=== PATIENT | female | born 2000 | race Caucasian/White ===

== ENCOUNTER 2018-10-22 05:32 | Outpatient (CLI) | payer BC ==
[~2018-10-22] VITALS: Ht 160 cm; Wt 55.3 kg
== END 2018-10-22 10:59 | disposition home or self-care (01) ==
LOC: PREOP 05:32
PROVIDERS: ATTEND Podiatrist
DX: Z01.818 Encounter for other preprocedural examination (principal)

== ENCOUNTER 2018-10-25 07:49 | Day surgery (SDC) | payer BC ==
[~2018-10-25] VITALS: Ht 160 cm; Wt 55.3 kg
--- OUTSIDE RECORDS SUMMARY | 2018-10-25 07:56 | XMS REPORT ---
Author Author JE HERRON Organization [facility] [address] Address [address] [place] [address] Care Team Providers Care Director Of Rotc Name Role Phone JE HERRON Unavailable PROBLEMS Type Condition ICD9-CM Code LFP58-ER Code Onset Dates Condition Status SNOMED Code Problem Anxiety F41.9 Active 55423099 Problem Post traumatic stress disorder F43.10 Active [id number] ALLERGIES No Known Allergies ENCOUNTERS Encounter Location Date Diagnosis [facility] [address] [place] [address] Dec, Anxiety F41.9 and Post traumatic stress disorder F43.10 IMMUNIZATIONS No Known Immunizations SOCIAL HISTORY Never Assessed REASON FOR VISIT herminia Ceron RN PLAN OF CARE VITAL SIGNS Height 63 in 2018-01-03 Weight 113 lbs 2018-01-03 Temperature 98.1 degrees Fahrenheit 2018-01-03 Heart Rate 78 bpm 2018-01-03 Respiratory Rate 18 2018-01-03 BMI 20.01 kg/m2 2018-01-03 Blood pressure systolic 98 mmHg 2018-01-03 Blood pressure diastolic 62 mmHg 2018-01-03 MEDICATIONS Unknown Medications RESULTS No Results PROCEDURES No Known procedures INSTRUCTIONS MEDICATIONS ADMINISTERED No Known Medications MEDICAL (GENERAL) HISTORY Type Description Date Surgical History gall stones removed Surgical History gallbladder removed Hospitalization History Gall bladder issues
--- OUTSIDE RECORDS SUMMARY | 2018-10-25 07:56 | XMS REPORT | Continuity of Care Document ---
Demographics x Preferred Language Unknown Marital Status Unknown Catholic Affiliation Unknown Race Unknown Ethnic Group Unknown Author Author [facility] Organization [facility] Address Unknown Phone Unavailable Allergies Active Description Code Type Severity Reaction Onset Reported/Identified Relationship to Patient Clinical Status Yes No Known Drug Allergies [id number] Drug Allergy Unknown N/A 10/22/2018 Medications There is no data. Problems Date Dx Coded Attending Type Code Diagnosis Diagnosed By 01/21/2015 TESSY DESIR 462 Pharyngitis, acute 04/01/2015 RAINA SEGURA 610.1 DIFFUSE CYSTIC MASTOPATHY 04/29/2015 BREA BULLARD V20.2 ROUTINE OR CHILD HEALTH CHECK 12/20/2015 TESSY DESIR B96.89 Other specified bacterial agents as the cause of diseases classified elsewhere 12/20/2015 TESSY DESIR J20.8 Acute bronchitis due to other specified organisms 12/20/2015 TESSY DESIR J32.9 Chronic sinusitis, unspecified 05/25/2016 JORGE THOMPSON J02.8 Acute pharyngitis due to other specified organisms 10/22/2018 JOSE ISAAC DPM Ot Z01.818 ENCOUNTER FOR OTHER PREPROCEDURAL EXAMIN 10/23/2018 JOSE ISAAC DPM Ot Z01.818 ENCOUNTER FOR OTHER PREPROCEDURAL EXAMIN Procedures There is no data. Results Test Result Range HCG QUAL - 01/19/14 00:00 HCG N Encounters ACCT No. Visit Date/Time Discharge Status Pt. Type Provider Facility Loc./Unit Complaint [id number] 01/19/2014 16:18:00 01/19/2014 19:30:00 DIS Emergency KARLY PADILLA [facility] EMR [id number] 01/19/2014 16:18:00 01/19/2014 19:30:00 DIS Emergency JOSE SOTO [facility] EMR [id number] 08/30/2013 00:00:00 Document Registration [id number] 01/22/2014 11:37:15 ACT Document Registration [id number] 05/25/2016 13:30:00 05/25/2016 17:30:00 DIS CB JAYJORGE [facility] [id number] 12/20/2015 10:45:00 12/20/2015 14:45:[id number] 04/29/2015 16:00:00 04/29/2015 20:00:00 DIS RB BRAE BULLARD [facility] [id number] 04/01/2015 14:30:00 04/01/2015 18:30:00 DIS RB RAINA SEGURA [facility] [id number] 01/21/2015 10:30:00 01/21/2015 20:30:00 [facility] [id number] 10/22/2018 05:32:00 10/22/2018 10:59:00 DIS Outpatient JOSE ISAAC DPM [facility] PREOP STJ AND CCJ FUSION RIGHT ANKLE [id number] 10/25/2018 07:49:00 ACT Outpatient JOSE ISAAC DPM [facility] SDC POST TRAUMATIC OSTEOARTHRITIS RT ANKLE
[2018-10-25] MEDS ORDERED: LACTATED RINGERS 1,000 ML IV PRN (08:23)
[2018-10-25 08:30] VITALS: BP 99/66
[2018-10-25] MEDS ORDERED: ceFAZolin 2 GM IV Premixed 50 ML IV ONE (08:30)
[2018-10-25] MEDS ORDERED: proPOfol 200 MG/20 ML (DIPRIVAN) VIAL IV ONE (09:15)
[2018-10-25] MEDS ORDERED: LIDOCAINE PF 2% 5 ML (XYLOCAINE) VIAL ONE (09:16)
[2018-10-25] MEDS ORDERED: SEVOFLURANE (ULTANE) 15 ML INHAL SOLN ONE ×4 (09:16→13:52)
[2018-10-25] MEDS ORDERED: MIDAZOLAM 2 MG/2 ML (VERSED) VIAL ONE (09:16)
[2018-10-25] MEDS ORDERED: ONDANSETRON 4 MG/2 ML (SDV) Z0FRAN ONE (09:16)
[2018-10-25] MEDS ORDERED: DEXAMETHASONE 10 MG/ML (DECADRON) 1 ML VIAL ONE (09:16)
[2018-10-25] MEDS ORDERED: fentaNYL INJECTION 250 MCG/5 ML AMP ONE (09:16)
[2018-10-25] MEDS ORDERED: BUPIVACAINE 0.5% 30 ML (SENSORCAINE) VIAL ONE ×2 (10:11→10:45)
[2018-10-25] MEDS ORDERED: HEParin (CENTRAL IV FLUSH) 500 UNIT/5 ML SYR ONE (11:04)
--- NOTE | 2018-10-25 11:57 | NUR ---
Initial visit: pt and her boyfriend, Hugo, of 10 years demonstrate positive and mutually supportive relationship. Pt said they have been "on and off" until the past 4 years when things have stayed steady. Both engaged openly, and demonstrated comfort and trust throughout our interaction. Pt and Piotr. work at [employer] in [place]. Pt said her foot has been broken for a year and this was confirmed after she requested an MRI. She worked through yesterday in anticipation of taking time off to recover from surgery.
[2018-10-25] MEDS ORDERED: GLYCOPYRROLATE 0.2 MG/ML (ROBINUL) 2 ML VIAL ONE (13:40)
[2018-10-25] MEDS ORDERED: BACLOFEN 10 MG (LIORESAL) TAB PO PRN (14:15)
[2018-10-25] MEDS ORDERED: morphine INJ 10 MG/ML 1ML (SYR OR VIAL) IVP PRN (14:15)
[2018-10-25] MEDS ORDERED: morphine INJ 10 MG/ML 1ML (SYR OR VIAL) IVP ONE (14:15)
[2018-10-25] MEDS ORDERED: D5 1/2 NS 1000 ML IV SOLUTION 1,000 ML IV SCH (14:15)
[2018-10-25] MEDS ORDERED: BISACODYL 10 MG SUPP (DULCOLAX) PR PRN (14:15)
[2018-10-25] MEDS ORDERED: HYDROcodone/APAP 10 MG/325 MG (LORTAB) TAB PO PRN (14:15)
[2018-10-25] MEDS ORDERED: ONDANSETRON 4 MG/2 ML (SDV) Z0FRAN IVP PRN ×2 (14:15)
--- NOTE | 2018-10-25 14:32 | NUR ---
Received Social Service consult on this patient who post surgery for discharge planning. Called surgery for clarification from Dr. Galeas. He reports that this is an automatic order and that there are no current SS needs.
[2018-10-25] MEDS ORDERED: KETOROLAC 30 MG/ML VIAL ONE (14:35)
[2018-10-25] MEDS: KETOROLAC 15 MG/ML VIAL IVP PRN (14:42)
[2018-10-25] MEDS ORDERED: HYDROmorphone 2 MG/ML VIAL (DILAUDID) IV ONE (14:45)
[2018-10-25 15:10] VITALS: BP 91/54
[2018-10-25] MEDS: D5 1/2 NS 1000 ML IV SOLUTION 1,000 ML IV SCH (15:56)
[2018-10-25] MEDS ORDERED: FLU QUADRIvalent (5+ YOA) 2018-2019 (AFLURIA) 0.5 ML IM ONE (16:15)
--- NOTE | 2018-10-25 16:58 | Diagnostic Imaging Report ---
INDICATION: Fluoroscopy for right ankle surgery. EXAMINATION: Fluoroscopy was provided in the OR during right foot and ankle surgery. FINDINGS: 68 seconds of fluoroscopy was utilized. Images demonstrate two fully threaded screws transfixing the subtalar joint. There is also a lateral plate which appears to transfix the calcaneocuboid joint. IMPRESSION: Fluoroscopy during foot surgery. Dictated by: Dictated on workstation # [id number]
[2018-10-25] MEDS: ceFAZolin 2 GM IV Premixed 50 ML IV SCH (17:44)
--- NOTE | 2018-10-25 18:27 | NUR ---
PT HAS HAD EMESIS X 3, ZOFRAN GIVEN EARLIER WITH SOME RELIEF. DR ISAAC NOTIFIED AND NEW ORDERS RECEIVED. SEE ORDER HX.
[2018-10-25] MEDS ORDERED: PROMETHAZINE INJ 25 MG/ML (PHENERGAN) AMP IVP PRN (18:30)
[2018-10-25 20:36] VITALS: BP 107/71
[2018-10-26] VITALS: BP 93/60
[2018-10-26] MEDS: ceFAZolin 2 GM IV Premixed 50 ML IV SCH (02:32)
[2018-10-26 04:00] VITALS: BP 87/50
[2018-10-26] MEDS: D5 1/2 NS 1000 ML IV SOLUTION 1,000 ML IV SCH (05:53)
[2018-10-26 08:00] VITALS: BP 82/43
[2018-10-26] MEDS ORDERED: ENOXAPARIN 40 MG/0.4 ML (LOVENOX) SYR SC SCH (09:00)
[2018-10-26] MEDS: KETOROLAC 15 MG/ML VIAL IVP PRN (09:26)
--- NOTE | 2018-10-26 09:27 | Physical Therapy Ortho Eval ---
PT Orthopedic Evaluation Type of Surgery Prior Level of Function Current Living Status: Spouse Locomotion (Upon Admit): Independent knee scooter Subjective Subjective Agrees to PT Entry Into Home: Stairs With Railing Steps Into Home: 4 Steps Accessories: Railing Present Motor Control Motor Control: Motor Control WNL ROM ROM: WFL, except focal deficit Strength Strength: WFL Transfer Transfers (B, C, W/C) (FIM): 7 Gait knee scooter Right Lower Extremity: Right Weight Bearing Status RLE: Non Weight Bearing Left Lower Extremity: Left Weight Bearing Status LLE: Full Weight Bearing Gait (FIM): 6 Distance (FIM): 3=150 ft Distance: 250' Gait Level of Assist: 6 Summary/Comments NWB right LE with knee scooter Treatment Rendered Treatment: Gait Train, Step Train (spouse reports he will carry her inside) Assessment/Goals Goal Time Frame: 1 Visit Safe Ambulation: Yes Plan Treatment Plan: Discharge PT/Family Agrees to Plan: Yes Time Time In: 832 Time Out: 840 Total Billed Treatment Time: 8 Billed Treatment Time 1 visit [facility] 8 min JOSE C LANG PT Oct 26, 2018 09:27
--- NOTE | 2018-10-26 09:32 | Podiatry Progress Note ---
Standard Progress Note Progress Notes/Assess & Plan Date Seen by a Provider: Oct 26, 2018 Time Seen by a Provider: 09:29 Progress/Assessment & Plan Pt seen at bedside, pain controlled by block, no complaints. Had post op nausea , resolved at this time. RLE- Dressing changed at bedside, mild sanguinous drainage, active ROM intact to the digits, calves supple nontender. Final Diagnosis POD #1 Right STJ Fusion and Distraction Arthrodesis of the CC joint with proximal tibial bone graft harvest. -Cont NWB RLE -Pain meds PRN -PT/OT -Lovenox for DVT Proph -Plan for D/C Home Today. JOSE ISAAC DPM Oct 26, 2018 09:32
--- NOTE | 2018-10-26 09:36 | Discharge Summary ---
Diagnosis/Chief Complaint Date of Admission 10/25/2018 Date of Discharge 10/26/2018 Discharge Date: Oct 26, 2018 Discharge Time: 09:33 Admission Diagnosis Admission Diagnosis Post Traumatic OA Right STJ and CCJ Discharge Diagnosis same Reason Hospital Visit Surgery to RLE with pain and ambulatory dysfunction. Discharge Summary Procedures: STJ Fusion and Distraction Arthrodesis of the CCJ RLE, Proximal Tibial Bone Graft [place] RLE Consultations none Discharge Physical Examination Allergies: Coded Allergies: No Known Drug Allergies (Unverified , 10/22/18) Vitals & I&Os Vital Signs Date Time Temp Pulse Resp B/P (MAP) Pulse Ox O2 Delivery O2 Flow Rate FiO2 10/26/18 08:00 96.3 72 15 82/43 (56) 98 Room Air Hospital Course uneventful Discharge Condition at discharge stable Instructions to patient/family Please see electronic discharge instructions given to patient. Discharge Medications Reviewed and agree with Discharge Medication list on patient's Discharge Instruction sheet Clinical Quality Measures Admission Status Admission Status: Observation Reason for Inpatient Admission: pain, ambulatory dysfunction DVT/VTE Risk/Contraindication: Risk Factor Score Per Nursin RFS Level Per Nursing on Admit: 4+=Very High JOSE ISAAC DPM Oct 26, 2018 09:36
--- NOTE | 2018-10-26 09:38 | Discharge Inst-Surgical ---
Discharge Inst-Surgical Consults/Follow Up Patient Instructions: Keep Dressing Clean, Dry and Intact to the RLE. Remain Nonweight bearing to the RLE. follow up with Dr Isaac in 2 weeks. Call for appointment. [phone] JOSE ISAAC DPM Oct 26, 2018 09:38
[2018-10-26] MEDS ORDERED: HYDR-3820 PO (09:39)
--- NOTE | 2018-10-26 09:57 | Occupational Therapy Eval ---
OT Evaluation-General/PLF Medical Diagnosis Admission Date October 25, 2018 Medical Diagnosis: post traumatic OA, STJ fusion Onset Date: Oct 25, 2018 Therapy Diagnosis Therapy Diagnosis: decr self care, decr funct mob Height/Weight Height (Feet): 5 Height (Inches): 3.00 Weight (Pounds): 122 Weight (Ounces): 0.0 Precautions Precautions/Isolations: Standard Precautions Safety Interventions: None Weight Bear Status Weight Bearing Restriction: Non Weight Bearing Location Restriction: R LE knee scooter Medical History Additional Medical History Anxiety, depression. Reported foot has been broken for about a year Current History R STJ fusion at ankle. NWB for 3 months Reviewed History: Yes Social History Home: Multilevel Current Living Status: Other Family Entry Into Home: Elevator, Stairs With Railing Steps Into Home: 4 Pt reported that she will be staying at boyfriend's father's house which has an elevator ADL-Prior Level of Function Therapy Code Descriptions/Definitions Functional [place] Measure: 0=Not Assessed/NA 4=Minimal Assistance 1=Total Assistance 5=Supervision or Setup 2=Maximal Assistance 6=Modified [place] 3=Moderate Assistance 7=Complete [place] Therapy Quality Codes: 6 Independent with activity with or without an assistive device 5 Patient requires set up or clean up by helper. Patient completes activity by themselves 4 Supervision or touching assist (CGA). [place] provide cues , steadying assist 3 The helper provides less than half the effort to complete the activity 2 The helper provides more than half the effort to complete the activity 1 Dependent. The helper does all the effort to complete an activity 7 Patient refused to complete or attempt activity 9 The patient did not perform the activity before the current illness or injury 88 Not attempted due to Medical conditions or safety concerns Functional Abilities and Goals: Independent: Patient completed the activities by him/herself, with or without an assistive device, with no assistance from a helper. Needed Some Help: Patient needed partial assistance from another person to complete activities. Dependent: A helper completed the activities for the patient. Unknown: Not Applicable: ADL PLOF Comments Pt reported that she was previously able to manage her basic self care needs, works at [employer]. Self Care: Independent Functional Cognition: Independent DME/Equipment: Bath Bench (available), Shower, Shower Hose Learning Center Coordinator, Tub OT Current Status Subjective Pt seen in room, up in bed, agreeable to OT. Pain rated 3/10 in R ankle, not described. Pt reported that she just had pain meds Appearance Alert, cooperative Mental Status/Objective Patient Orientation: Person, Place, Time, Situation Attachments: IV Current Upper Extremity ROM Grossly WFL per pt report Upper Extremity Sensation No problems per pt report Upper Extremity Strength Grossly WFL per pt report ADL-Treatment ADL-Current Pt got out of bed independently with PT and walked indep with knee scooter. Reviewed modified ADLs, including transfer tub bench, shower bench, BSC over toilet, modified dressing techniques, with pt and boyfriend verbal understanding. She anticipates no difficulty with basic ADLs. Plans to DC today Therapy Code Descriptions/Definitions Functional [place] Measure: 0=Not Assessed/NA 4=Minimal Assistance 1=Total Assistance 5=Supervision or Setup 2=Maximal Assistance 6=Modified [place] 3=Moderate Assistance 7=Complete [place] Therapy Quality Codes: 6 Independent with activity with or without an assistive device 5 Patient requires set up or clean up by helper. Patient completes activity by themselves 4 Supervision or touching assist (CGA). [place] provide cues , steadying assist 3 The helper provides less than half the effort to complete the activity 2 The helper provides more than half the effort to complete the activity 1 Dependent. The helper does all the effort to complete an activity 7 Patient refused to complete or attempt activity 9 The patient did not perform the activity before the current illness or injury 88 Not attempted due to Medical conditions or safety concerns Education OT Patient Education: Modified ADL techniques, Purpose of tx/functional activities, Reviewed precautions, Rehab process Teaching Recipient: Patient, Significant Other Teaching Methods: Discussion Response to Teaching: Verbalize Understanding OT Senior Living Goals Manager Of Customer Billing Goals Time Frame: Oct 26, 2018 Additional Goals: 2-Verbalize Understanding (goal met) 2=Patient will verbalize/demonstrate understanding of assistive devices/ modifications for ADL. OT Education/Plan Problem List/Assessment Assessment: Dependent Transfers (decr funct mobility), Impaired Self-Care Skills Pt would benefit from skilled OT to increase her independence and safety with basic self care Discharge Recommendations Plan/Recommendations: Discharge/Goals Met Treatment Plan/Plan of Care Treatment,Training & Education: Yes Patient would benefit from OT for education, treatment and training to promote independence in ADL's, mobility, safety and/or upper extremity function for ADL' s. Plan of Care: ADL Retraining Treatment Duration: Oct 26, 2018 Frequency: 1 time per week Estimated Hrs Per Day: .25 hour per day Agreement: Yes Rehab Potential: Good Time/GCodes Start Time: 09:34 Stop Time: 09:45 Total Time Billed (hr/min): 11 Billed Treatment Time visit, 11 minutes evaluation low intensity CEDRIC SHELBY OT Oct 26, 2018 09:57
[2018-10-26 12:10] VITALS: BP 83/44
[2018-10-26 13:00] VITALS: BP 83/44
--- NOTE | 2018-10-26 13:00 | NUR ---
ITZ PINEDO demonstrates understanding of discharge instructions and accurately returns instructions upon questioning. Copy of Post-Discharge Instructions given to PT. ITZ PINEDO is able to manage continuing needs after discharge. Patients belongings returned to PT. Patient discharged from [facility] on 10/26/18 at 1300. ITZ PINEDO left floor via W/C, accompanied by STAFF AND BIBI PER AUTO.
--- NOTE | 2018-10-26 17:42 | Anesthesia-General Post-Op ---
General Patient Condition Mental Status/LOC: Same as Preop Cardiovascular: Satisfactory Nausea/Vomiting: Absent Respiratory: Satisfactory Pain: Controlled Complications: Absent Post Op Complications Complications None Follow Up Care/Instructions Patient Instructions None needed. Anesthesia/Patient Condition Patient Condition Patient is doing well, no complaints, stable vital signs, no apparent adverse anesthesia problems. No complications reported per nursing. CHRISSIE NOLAND CRNA Oct 26, 2018 17:41
[2018-10-26] MEDS ORDERED: SENNA W/DOCUSATE (SENOKOT S) TABLET PO SCH (21:00)
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
== END 2018-10-26 13:00 | disposition home or self-care (01) ==
LOC: SDC 07:49 → 4TH 15:02 → SDC 10-26 13:00
PROVIDERS: ATTEND Podiatrist
DX: M19.171 Post-traumatic osteoarthritis, right ankle and foot (principal)
CPT/HCPCS: 84703; 87081; 94664; C1713; C1769